=== PATIENT | female | born 1985 | race Caucasian/White ===

== ENCOUNTER 2020-07-12 20:41 | Emergency (ER) | payer OTHER ==
[2020-07-12] MEDS ORDERED: ACETAMINOPHEN 1000 MG/100 ML VIAL (NON FORMULARY) IVPB ONE (21:21)
[2020-07-12] MEDS ORDERED: SODIUM CHLORIDE 1,000 ML IV STA (21:21)
[2020-07-12 21:24] VITALS: TEMP 98.3; BMI 22.6
[2020-07-12] MEDS ORDERED: ACETAMINOPHEN INJECTION 100 ML IVPB ONE (22:55)
[2020-07-12 23:01] LABS: BASO % 0.4 % (0-2.0); HEMATOCRIT 42.2 % (32.4-45.2); HEMOGLOBIN 14.3 GM/dL (10.7-15.3); LYMPH % 15.2 % (8-40); MCH 31.2 pg (25.7-33.7); MCHC 33.9 g/dl (32.0-36.0); MEAN CELL VOLUME 92.1 fl (80-96); MEAN PLT VOLUME 7.6 fl (7.5-11.1); MONO % 10.5 % (3.8-10.2); NEUT % 72.9 % (42.8-82.8); PLATELET COUNT 227 K/MM3 (134-434); RBC 4.58 M/mm3 (3.60-5.2); RDW 12.7 % (11.6-15.6); WHITE BLOOD COUNT 7.7 K/mm3 (4.0-10.0)
[2020-07-12 23:19] LABS: POTASSIUM 3.8 mmol/L (3.5-5.1)
[2020-07-12 23:21] LABS: CALCIUM 9.1 mg/dL (8.5-10.1)
[2020-07-12 23:22] LABS: ALBUMIN 3.7 g/dl (3.4-5.0); BLOOD UREA NITROGEN 10.7 mg/dL (7-18)
[2020-07-12 23:25] LABS: CREATININE 0.7 mg/dL (0.55-1.3)
[2020-07-12 23:26] LABS: BILIRUBIN,TOTAL 0.4 mg/dL (0.2-1)
[2020-07-12 23:27] LABS: TOT PROT 6.7 g/dl (6.4-8.2)
[2020-07-13 01:09] VITALS: BP 110/64; PULSE 84
== END 2020-07-13 01:09 | disposition home or self-care (01) ==
LOC: JER 20:41
PROC: 3E033NZ Introduction of Analgesics, Hypnotics, Sedatives into Peripheral Vein, Percutaneous Approach (ICD-10-PCS; principal; 2020-07-12)
PROC: 3E0337Z Introduction of Electrolytic and Water Balance Substance into Peripheral Vein, Percutaneous Approach (ICD-10-PCS; 2020-07-12)
DX: R10.9 Unspecified abdominal pain (principal); R19.7 Diarrhea, unspecified
CPT/HCPCS: 36415; 80053; 84703; 85025; 87324; 87449; 99285-25; J0131